=== PATIENT | male | born 1965 | race Two or more races ===

== ENCOUNTER 2024-11-14 15:17 | Emergency (ER) | payer OTHER ==
[~2024-11-14] VITALS: Ht 167.6 cm; Wt 72.6 kg
[2024-11-14] MEDS ORDERED: SYNTHROID50 MCG PO (15:22)
[2024-11-14] MEDS ORDERED: TENORMIN25 MG PO (15:22)
[2024-11-14] MEDS ORDERED: TIVICAY50 MG PO (15:22)
[2024-11-14] MEDS ORDERED: IBU800 MG PO (18:59)
[2024-11-14] MEDS ORDERED: DEXAMETHASONE SODIUM PHOSPHATE 4 MG/ML VIAL ONE (19:03)
[2024-11-14] MEDS ORDERED: KETOROLAC TROMETHAMINE 60 MG VIAL IM ONE ×2 (19:03→19:15)
[2024-11-14] MEDS ORDERED: DEXAMETHASONE SODIUM PHOSPHATE 4 MG/ML VIAL IM ONE (19:15)
== END 2024-11-14 19:23 | disposition home or self-care (01) ==
LOC: ER 15:18
DX: M75.52 Bursitis of left shoulder (principal); I10 Essential (primary) hypertension; E03.9 Hypothyroidism, unspecified; B20 Human immunodeficiency virus [HIV] disease; Z88.8 Allergy status to other drugs, medicaments and biological substances